=== PATIENT | female | born 1970 | race Caucasian/White ===

== ENCOUNTER 2019-05-06 22:48 | Emergency (ER) | payer MEDICAID ==
[~2019-05-06] VITALS: Ht 167.6 cm; Wt 68.0 kg
--- NOTE | 2019-05-06 23:12 | NUR ---
ED Nurse Note: Pt walked in c/o ringing in the ears and "not feeling right". pt states she recently was diagnosed for high blood pressure and started taking lisinopril for her blood pressure but after taking the medication she started having bruising on legs, sore throat and ringing in the ears, pt states it feels like vibrations and progressively getting worse. pt states she takes antibiotic for possible infection. pt ambulatory w/ steady gait, denies vision changes, denies headache but reports discomfort due to the rining in the ears. pt vss. AA&ox4, gcs=15, cms intact. will cont monitor.
[2019-05-06 23:14] VITALS: BP 149/95
--- NOTE | 2019-05-07 00:15 | NUR ---
ED Nurse Note: pt being transported to CT via wheelchair. she does not appear to be in any distress. pt's significant other is at bedside
[2019-05-07] MEDS ORDERED: NORTRIPTYLINE H50 MG PO (00:26)
--- NOTE | 2019-05-07 00:27 | Emergency Room Report ---
History of Present Illness General Chief Complaint: General Complaint Source: Patient Present Illness HPI This is a 48-year-old female with she of high blood pressure. She was on lisinopril but with lifestyle changes much better now. She presents with chief complaint of ringing in her right ear. Is been ongoing for 2 months now. She noticed this after having a sore throat and coughing and runny nose. Few days afterward her ear started ringing and has been persistent since then. She seen at a hospital in [place] and said that she had an echocardiogram of her heart and was normal. Lab work was normal. She was seen here in November for high blood pressure and headache. Her CT scan then was negative. She came in today because the advice nurse of her insurance told her to come here. She complaining of is also some spasm and funny sensation to the back of her head. No focal deficit. Has not been able to get a primary care doctor or referral to see a specialist. Denies any other complaint. No focal deficit. Allergies: Coded Allergies: ASPIRIN (Verified Allergy, Unknown, 04/29/19) Patient History Past Medical History: see triage record, old chart reviewed Past Surgical History: none Pertinent Family History: none Social History: Denies: smoking Now: No Immunizations: other Reviewed Nursing Documentation: PMH: Agreed; PSxH: Agreed Nursing Documentation-PMH Hx Hypertension: Yes Review of Systems Eye: Denies: eye pain, blurred vision ENT: Denies: ear pain, nose congestion, throat swelling Respiratory: Denies: cough, shortness of breath Cardiovascular: Denies: chest pain, palpitations Gastrointestinal: Denies: abdominal pain, diarrhea, nausea, vomiting Musculoskeletal: Denies: back pain, joint pain Skin: Denies: rash Neurological: Denies: headache, numbness Endocrine: Denies: increased thirst, increased urine Hematologic/Lymphatic: Denies: easy bruising All Other Systems: negative except mentioned in HPI Physical Exam Vital Signs Date Time Temp Pulse Resp B/P (MAP) Pulse Ox O2 Delivery O2 Flow Rate FiO2 05/06/19 22:56 98.8 93 18 149/95 (113) 96 Room Air Vitals with high blood pressure Sp02 EP Interpretation: reviewed, normal General Appearance: well appearing, no apparent distress, alert Head: normocephalic, atraumatic Eyes: bilateral eye PERRL, bilateral eye EOMI ENT: hearing grossly normal, normal pharynx Neck: full range of motion, supple, no meningismus Respiratory: chest non-tender, lungs clear, normal breath sounds Cardiovascular #1: regular rate, rhythm, no murmur Gastrointestinal: normal bowel sounds, non tender, no mass, no organomegaly, no bruit, non-distended Musculoskeletal: back normal, normal range of motion, gait/station normal Neurologic: alert, motor strength/tone normal Psychiatric: anxious Medical Decision Making Diagnostic Impression: Primary Impression: Tinnitus, right Additional Impression: Headache Qualified Codes: R51 - Headache ER Course Presents with tinnitus. No evidence of any mass. No evidence of any bleed or neoplastic process. Explained to the patient that this type of symptoms cannot be treated in the ER. She will need to see a specialist and get hearing test. I see no evidence of TIA or CVA. Will discharge home. CT/MRI/US Diagnostic Results CT/MRI/US Diagnostic Results : Imaging Test Ordered: CT head Impression Per radiologist negative Last Vital Signs Date Time Temp Pulse Resp B/P (MAP) Pulse Ox O2 Delivery O2 Flow Rate FiO2 05/06/19 23:14 93 18 Room Air 05/06/19 23:14 98.8 149/95 96 Status: improved Disposition: HOME, SELF-CARE Condition: Stable Scripts Nortriptyline Hcl (NORTRIPTYLINE HCL) 50 Mg Capsule 50 MG PO QHS, #30 CAP Prov: Elroy Romo MD 05/07/19 Additional Instructions: Follow-up with your doctor in 1 to 2 weeks. You will need referral to get a hearing test and refer to see ear nose and throat doctor or neurologist. Return if symptoms worsen. Elroy Romo MD May 07, 2019 00:27
--- NOTE | 2019-05-07 00:57 | Diagnostic Imaging Report ---
EXAM: CT Head Without Intravenous Contrast CLINICAL HISTORY: AMS TECHNIQUE: Axial computed tomography images of the head/brain without intravenous contrast. CTDI is 62.7 mGy and DLP is 1457.7 mGy-cm. One or more of the following dose reduction techniques were used: automated exposure control, adjustment of the mA and/or kV according to patient size, use of iterative reconstruction technique. COMPARISON: No relevant prior studies available. FINDINGS: Brain: Unremarkable. No hemorrhage. No significant white matter disease. No edema. Ventricles: Unremarkable. Bones/joints: Unremarkable. No acute fracture. Soft tissues: Unremarkable. Sinuses: Unremarkable as visualized. No acute sinusitis. Mastoid air cells: Unremarkable as visualized. No mastoid effusion. IMPRESSION: No CT evidence for acute intracranial abnormality.
[2019-05-07 01:08] VITALS: BP 129/90
--- NOTE | 2019-05-07 01:08 | NUR ---
ER DISCHARGE NOTE: Patient is cleared to be discharged per ERMD, pt is aox4, on room air, with stable vital signs. pt was given dc and prescription instructions, pt was able to verbalize understanding, pt id band removed without complications. pt is able to ambulate with steady gait. pt took all belongings.
== END 2019-05-07 01:08 | disposition home or self-care (01) ==
LOC: EMR 23:36
DX: H93.11 Tinnitus, right ear (principal); R51 Headache; I10 Essential (primary) hypertension; Z88.6 Allergy status to analgesic agent
CPT/HCPCS: 70450; Z7502; 99284